=== PATIENT | male | born 1985 | race Caucasian/White ===

== ENCOUNTER 2018-06-26 11:00 | Emergency (ER) | payer MEDICAID ==
[2018-06-26 11:38] VITALS: PULSE 85; TEMP 98
--- NOTE | 2018-06-26 12:08 | C.PDOC ---
History Of Present Illness 32 y/o male with no PMHx presents to the ED for evaluation of bright red blood per rectum for the past 2-3 days. He notes the bleeding has occurred on and off for the past 2 months. Patient reports seeing gross blood in the toilet as well as bloody stools. Otherwise he denies any nausea, vomiting, diarrhea, severe rectal pain, fevers, or chills. He admits to having mild abdominal pain, which is not modified by bowel movements or eating. Time Seen by Provider: 06/26/18 11:38 Chief Complaint (Nursing): GI Problem History Per: Patient History/Exam Limitations: no limitations Onset/Duration Of Symptoms: Days (x 3) Current Symptoms Are (Timing): Still Present Number Of Bleeding Episodes: Multiple: Associated Symptoms: Rectal Bleeding Modifying Factors: None Past Medical History Reviewed: Historical Data, Nursing Documentation, Vital Signs Vital Signs: Last Vital Signs Temp 98 F 06/26/18 11:35 Pulse 85 06/26/18 11:35 Resp 16 06/26/18 11:35 BP 134/89 06/26/18 11:35 Pulse Ox 98 06/26/18 11:35 - Medical History PMH: No Chronic Diseases Surgical History: No Surg Hx Family History: States: Unknown Family Hx - Social History Hx Alcohol Use: Yes Hx Substance Use: Yes (MARIJUANA) - Immunization History Hx Influenza Vaccination: No Review Of Systems Except As Marked, All Systems Reviewed And Found Negative. Constitutional: Negative for: Fever, Chills Eyes: Negative for: Vision Change Cardiovascular: Negative for: Palpitations, Light Headedness Respiratory: Negative for: Shortness of Breath Gastrointestinal: Positive for: Abdominal Pain, Hematochezia, Other (Bright red blood per rectum). Negative for: Nausea, Vomiting, Diarrhea, Rectal Pain Genitourinary: Negative for: Dysuria, Hematuria Musculoskeletal: Negative for: Back Pain Skin: Negative for: Rash Neurological: Negative for: Weakness, Dizziness Physical Exam - Physical Exam Appears: Well, Non-toxic, No Acute Distress Skin: Normal Color, Warm, No Pale Head: Atraumatic, Normacephalic Eye(s): bilateral: Normal Inspection, PERRL, EOMI Oral Mucosa: Moist Neck: Normal ROM Chest: Symmetrical Cardiovascular: Rhythm Regular, No Murmur Respiratory: Normal Breath Sounds, No Accessory Muscle Use, Other (NARD) Gastrointestinal/Abdominal: Bowel Sounds (active), Soft, No Tenderness, No Distention, No Guarding Rectal: Heme Positive (+ Bright red blood), No Hemorrhoids, No Tenderness Back: No CVA Tenderness Extremity: Bilateral: Atraumatic, Normal Color And Temperature, Normal ROM Neurological/Psych: Oriented x3, Normal Speech ED Course And Treatment - Laboratory Results Result Diagrams: 06/26/18 12:29 O2 Sat by Pulse Oximetry: 98 (RA) Pulse Ox Interpretation: Normal Medical Decision Making Medical Decision Making: Impression: Lower GI bleed Plan: * Stool sample sent for analysis * Pending CBC Disposition Counseled Patient/Family Regarding: Diagnosis, Need For Followup - Disposition Referrals: Jacky King MD [Staff Provider] - Disposition: HOME/ ROUTINE Disposition Time: 12:45 Condition: GOOD Instructions: Bloody Stools, Adult (DC) Forms: [facility] (Spanish), Work Excuse - Clinical Impression Clinical Impression: Lower GI bleed - Scribe Statement The provider has reviewed the documentation as recorded by the Manda Moreno Provider Attestation: All medical record entries made by the Manda were at my direction and personally dictated by me. I have reviewed the chart and agree that the record accurately reflects my personal performance of the history, physical exam, medical decision making, and the department course for this patient. I have also personally directed, reviewed, and agree with the discharge instructions and disposition.
[2018-06-26 12:37] LABS: MEAN CELL VOLUME 90.6 fL (80.0-94.0); MEAN CORPUSCULAR HEMOGLOBIN 30.3 pg (27.0-31.0); MEAN CORPUSCULAR HGB CONC 33.4 g/dL (33.0-37.0); MEAN PLATELET VOLUME 10.9 fL (7.2-11.7); RBC 5.27 Mil/uL (4.40-5.90); RED CELL DISTRIBUTION WIDTH 12.6 % (11.5-14.5); WHITE BLOOD COUNT 6.7 K/uL (4.8-10.8)
[2018-06-26 12:53] VITALS: BP 130/89; RESP 18; O2SAT 99
== END 2018-06-26 13:02 | disposition home or self-care (01) ==
LOC: C.ER 11:00
DX: K92.2 Gastrointestinal hemorrhage, unspecified (principal)
CPT/HCPCS: 85027; 99284; G0328